=== PATIENT | female | born 1950 | race Caucasian/White ===

== ENCOUNTER 2020-09-22 16:13 | Observation (INO) ==
[2020-09-22 16:59] LABS: Basophils % 0.5 %; Eosinophils # 0.2 K/mcL (0.0-0.6); Hematocrit 42.5 % (35.3-44.9); Hemoglobin 14.1 g/dL (11.5-15.4); Immature Granulocytes % 0.2 % (0-4); Lymphocytes # 2.6 K/mcL (0.6-4.6); Lymphocytes % 43.2 %; Mean Corpuscular HGB Conc 33.2 g/dL (31.6-35.5); Mean Corpuscular Hemoglobin 30.7 pg (28.0-33.3); Mean Corpuscular Volume 92.4 fL (83.0-100.0); Monocytes # 0.4 K/mcL (0.0-1.3); Monocytes % 6.6 %; Neutrophils # 2.8 K/mcL (1.6-8.9); Platelet Count 225 K/mcL (140-400); Red Cell Distribution Width 12.5 % (11.5-14.5); Segmented Neutrophils % 46.5 %; White Blood Count 5.9 K/mcL (4.3-11.1)
[2020-09-22 17:07] LABS: INR 0.9; Prothrombin Time 10.3 Seconds (9.4-12.1)
[2020-09-22 17:09] LABS: Activated Partial Thrombo Time 30.3 Seconds (26.0-36.0)
[2020-09-22 17:15] LABS: BUN/Creatinine Ratio 18 (6-26); Blood Urea Nitrogen 17 mg/dL (8-23); Calcium 9.7 mg/dL (8.6-10.3); Carbon Dioxide 27 mEq/L (23-29); Chloride 105 mEq/L (98-107); Glucose 107 mg/dL (70-105); Osmolality,Calculated 290 (280-300); Potassium 3.5 mEq/L (3.5-5.1); Sodium 139 mEq/L (136-145); eGFR For African Americans > 60 (> 60); eGFR For Non-African Americans > 60 (> 60)
[2020-09-22 17:16] LABS: Troponin I < 0.03 ng/mL (< 0.04)
[2020-09-22 17:28] LABS: Thyroid Stimulating Hormone 1.321 mcIU/mL (0.340-5.600)
[2020-09-22] MEDS ORDERED: Ondansetron ODT 4 MG TAB.RAPDIS SL PRN (18:09)
[2020-09-22] MEDS ORDERED: Naloxone 0.4 MG/ML INJ IVP PRN (18:09)
[2020-09-22] MEDS ORDERED: Mag Hydrox/Al Hydrox/Simeth 30 ML UDC PO PRN (18:09)
[2020-09-22] MEDS ORDERED: MOM Conc 10 ML UD.LIQ PO PRN (18:09)
[2020-09-22] MEDS ORDERED: Melatonin 3 MG TABLET PO PRN (18:09)
[2020-09-22] MEDS ORDERED: Latanoprost 2.5 ML BOTTLE BOTH EYES SCH (18:15)
[2020-09-22] MEDS ORDERED: Perflutren Lipid Microsphere 1.3 ML in 0.9 % Sodium Chloride 8.7 ML IVP PRN (18:21)
[2020-09-23 05:59] LABS: Hematocrit 41.2 % (35.3-44.9); Hemoglobin 13.7 g/dL (11.5-15.4); Mean Corpuscular HGB Conc 33.3 g/dL (31.6-35.5); Mean Corpuscular Hemoglobin 30.9 pg (28.0-33.3); Mean Corpuscular Volume 92.8 fL (83.0-100.0); Platelet Count 220 K/mcL (140-400); Red Blood Count 4.44 M/mcL (3.82-4.97); Red Cell Distribution Width 12.4 % (11.5-14.5)
[2020-09-23 06:15] LABS: Alanine Aminotransferase 13 Units/L (7-52); Albumin/Globulin Ratio 1.6 (1.1-2.2); Alkaline Phosphatase 65 Units/L (34-104); Aspartate Amino Transferase 15 Units/L (13-39); BUN/Creatinine Ratio 17 (6-26); Bilirubin,Total 0.5 mg/dL (0.3-1.0); Blood Urea Nitrogen 17 mg/dL (8-23); Calcium 9.2 mg/dL (8.6-10.3); Carbon Dioxide 26 mEq/L (23-29); Chloride 106 mEq/L (98-107); Chol/HDL Ratio 4.8 (0-4.9); Cholesterol 234 mg/dL (< 200); Globulin 2.5 g/dL (2.4-3.5); Glucose 98 mg/dL (70-105); HDL Cholesterol 49 mg/dL (40-59); LDL Cholesterol,Calculated 144 mg/dL (< 100); Osmolality,Calculated 290 (280-300); Potassium 3.8 mEq/L (3.5-5.1); Sodium 139 mEq/L (136-145); Total Protein 6.5 g/dL (6.4-8.9); Triglycerides 207 mg/dL (< 150); Troponin I < 0.03 ng/mL (< 0.04); eGFR For African Americans > 60 (> 60); eGFR For Non-African Americans 54 (> 60)
[2020-09-23] MEDS ORDERED: Aspirin 81 MG TAB.CHEW PO SCH (09:00)
[2020-09-23 10:22] VITALS: BP 144/76
== END 2020-09-23 14:41 | disposition home or self-care (01) ==
LOC: EMEROOARM 16:13 → 3BNU 16:13
PROVIDERS: ADMIT Internal Medicine; ATTEND Internal Medicine